=== PATIENT | female | born 1995 | race Two or more races ===

== ENCOUNTER 2022-03-15 14:18 | Emergency (ER) | payer SELFPAY ==
[~2022-03-15] VITALS: Ht 157.5 cm; Wt 57.0 kg
[2022-03-15] MEDS ORDERED: ACETAMINOPHEN 325 MG TAB PO ONE (15:45)
[2022-03-15] MEDS ORDERED: SODIUM CHLORIDE 0.9% 1,000 ML IV ONE (17:30)
[2022-03-15 18:12] VITALS: BP 149/98
== END 2022-03-15 17:18 | disposition home or self-care (01) ==
LOC: ER 14:18
DX: J02.9 Acute pharyngitis, unspecified (principal); B34.9 Viral infection, unspecified
CPT/HCPCS: 96360; 99283; J7030

== ENCOUNTER 2022-03-20 20:35 | Emergency (ER) | payer SELFPAY ==
[2022-03-20 20:53] VITALS: BP 152/92
== END 2022-03-21 02:28 | disposition home or self-care (01) ==
LOC: ER 20:35
DX: S63.502A Unspecified sprain of left wrist, initial encounter (principal); W01.0XXA Fall on same level from slipping, tripping and stumbling without subsequent striking against object, initial encounter; Y93.89 Activity, other specified; Y92.89 Other specified places as the place of occurrence of the external cause; Y99.8 Other external cause status
CPT/HCPCS: 73110